=== PATIENT | male | born 1995 | race Two or more races ===

== ENCOUNTER 2024-04-04 13:05 | Emergency (ER) | payer OTHER ==
[~2024-04-04] VITALS: Ht 172.7 cm; Wt 80.7 kg
[2024-04-04 13:18] VITALS: TEMP 98
[2024-04-04] MEDS ORDERED: KETOROLAC TROMETHAMINE 15 MG/ML VIAL ONE (14:44)
[2024-04-04] MEDS ORDERED: ACETAMINOPHEN ES 500 MG TABLET ONE (14:45)
[2024-04-04] MEDS ORDERED: CYCLOBENZAPRINE 10 MG TABLET ONE (14:45)
[2024-04-04] MEDS: CYCLOBENZAPRINE 10 MG TABLET PO ONE (14:56)
[2024-04-04] MEDS: ACETAMINOPHEN ES 500 MG TABLET PO ONE (14:56)
[2024-04-04] MEDS: KETOROLAC TROMETHAMINE 15 MG/ML VIAL IM ONE (14:57)
[2024-04-04] MEDS ORDERED: CYCL10TA9 PO (15:26)
[2024-04-04] MEDS ORDERED: ACET-2030 PO (15:26)
[2024-04-04] MEDS ORDERED: KETO10TA2 PO (15:26)
[2024-04-04 16:38] VITALS: BP 110/74; O2SAT 98
== END 2024-04-04 17:26 | disposition home or self-care (01) ==
LOC: ER 13:37
DX: S90.02XA Contusion of left ankle, initial encounter (principal); M54.50 Low back pain, unspecified; V43.92XA Unspecified car occupant injured in collision with other type car in traffic accident, initial encounter; Y93.89 Activity, other specified; Y92.89 Other specified places as the place of occurrence of the external cause; Y99.8 Other external cause status
CPT/HCPCS: 99283; 96372; 73610; J1885